=== PATIENT | female | born 1995 | race Caucasian/White ===

== ENCOUNTER → 2020-03-23 12:25 | Observation (INO) ==
[2020-03-23 11:59] LABS: Bacteria,Urine Many per hpf (None-Few); Bilirubin,Urine Negative (Negative); Blood,Urine Negative (Negative); Clarity,Urine Ex.Turbid (Clear); Color,Urine Yellow (Yellow); Glucose,Urine (UA) Normal (Normal); Hyaline Casts,Urine Few per lpf (None Seen); Ketones,Urine Negative (Negative); Leukocyte Esterase,Urine Moderate (Negative); Mucus,Urine Many per lpf (None-Few); Nitrite,Urine Negative (Negative); PH,Urine 6.5 pH Units (5.0-8.0); Protein,Urine 100 mg/dL (Neg-Trace); Specific Gravity,Urine 1.024 (1.010-1.025); Squamous Epithelial Cell,Urine Many per hpf (None-Few)
== END | disposition home or self-care (01) ==
LOC: 1NENULAB
PROVIDERS: ADMIT Obstetrics & Gynecology; ATTEND Obstetrics & Gynecology

== ENCOUNTER → 2020-05-08 14:51 | Observation (INO) ==
[2020-05-08 12:31] LABS: Bacteria,Urine Moderate per hpf (None-Few); Bilirubin,Urine Negative (Negative); Blood,Urine Negative (Negative); Clarity,Urine Turbid (Clear); Color,Urine Yellow (Yellow); Glucose,Urine (UA) Normal (Normal); Hyaline Casts,Urine Few per lpf (None Seen); Ketones,Urine Trace mg/dL (Negative); Leukocyte Esterase,Urine Small (Negative); Mucus,Urine Many per lpf (None-Few); Nitrite,Urine Negative (Negative); Protein,Urine 50 mg/dL (Neg-Trace); Specific Gravity,Urine 1.022 (1.010-1.025); Squamous Epithelial Cell,Urine Many per hpf (None-Few); Transitional Epi Cells,Urine Few per hpf (None-Few)
== END | disposition home or self-care (01) ==
LOC: 1NENULAB
PROVIDERS: ADMIT Obstetrics & Gynecology; ATTEND Obstetrics & Gynecology

== ENCOUNTER 2020-05-20 18:09 | Observation (INO) ==
[2020-05-20 19:08] LABS: Bacteria,Urine Many per hpf (None-Few); Bilirubin,Urine Negative (Negative); Blood,Urine Negative (Negative); Calcium Oxalate Crystals,Urine Present; Clarity,Urine Turbid (Clear); Color,Urine Light-Yellow (Yellow); Glucose,Urine (UA) Normal (Normal); Ketones,Urine Negative (Negative); Leukocyte Esterase,Urine Trace (Negative); Mucus,Urine Few per lpf (None-Few); Nitrite,Urine Negative (Negative); Protein,Urine Trace mg/dL (Neg-Trace); Specific Gravity,Urine 1.013 (1.010-1.025); Squamous Epithelial Cell,Urine Many per hpf (None-Few); Urobilinogen,Urine Normal (Normal); WBC,Urine 0-3 per hpf (0-3)
== END 2020-05-20 19:23 | disposition home or self-care (01) ==
LOC: 1NENULAB
PROVIDERS: ADMIT Obstetrics & Gynecology; ATTEND Obstetrics & Gynecology

== ENCOUNTER 2020-06-01 19:41 | Inpatient (IN) ==
[~2020-06-01 19:41] MED LIST: Methylergonovine 0.2 MG/ML AMPUL IM ONE
[2020-06-01] MEDS ORDERED: Ondansetron 4 MG/2 ML VIAL IVP PRN (19:48)
[2020-06-01] MEDS ORDERED: Naloxone 0.4 MG/ML INJ IVP PRN (19:48)
[2020-06-01] MEDS ORDERED: Lidocaine 1% 20 ML MDV INFILT PRN (19:48)
[2020-06-01] MEDS ORDERED: Metoclopramide 10 MG/2 ML VIAL IVP PRN (19:48)
[2020-06-01] MEDS ORDERED: Famotidine 20 MG/2 ML VIAL IVP PRN (19:48)
[2020-06-01] MEDS ORDERED: EPHEDrine 50 MG/ML VIAL IVP PRN (19:49)
[2020-06-01] MEDS ORDERED: Epidural Premix (fent/bupiv) 110 ML EP SCH (20:00)
[2020-06-01] MEDS ORDERED: Oxytocin 20 units/ LR 1000 mL 20 UNIT/1,000 ML BAG IVC SCH (20:00)
[2020-06-01] MEDS ORDERED: Ringers Solution, Lactated 1,000 ML IVC SCH (20:00)
[2020-06-01 20:32] LABS: Basophils # 0.1 K/mcL (0.0-0.2); Basophils % 0.3 %; Eosinophils # 0.1 K/mcL (0.0-0.6); Eosinophils % 0.3 %; Hematocrit 36.2 % (35.3-44.9); Hemoglobin 11.7 g/dL (11.5-15.4); Immature Granulocytes % 0.4 % (0-4); Lymphocytes # 2.1 K/mcL (0.6-4.6); Lymphocytes % 12.8 %; Mean Corpuscular HGB Conc 32.3 g/dL (31.6-35.5); Mean Corpuscular Hemoglobin 27.7 pg (28.0-33.3); Mean Corpuscular Volume 85.8 fL (83.0-100.0); Mean Platelet Volume 10.7 fL (9.4-12.4); Neutrophils # 13.1 K/mcL (1.6-8.9); Platelet Count 241 K/mcL (140-400); Red Blood Count 4.22 M/mcL (3.82-4.97); Segmented Neutrophils % 80.2 %; White Blood Count 16.3 K/mcL (4.3-11.1)
[2020-06-01 20:57] LABS: Amphetamine Screen,Urine Negative ng/mL (Cutoff=1000); Barbiturate Screen,Urine Negative ng/mL (Cutoff=200); Benzodiazepines Screen,Urine Negative ng/mL (Cutoff=200); Cannabinoid Screen,Urine Negative ng/mL (Cutoff = 50); Cocaine Screen,Urine Negative ng/mL (Cutoff= 300); Opiate Screen,Urine Negative ng/mL (Cutoff=300); Phencyclidine Screen,Urine Negative ng/mL (Cutoff=25)
[2020-06-01 22:12] LABS: Adenovirus Not Detected (Not Detect); Bordetella Pertussis Not Detected (Not Detect); Chlamydophila pneumoniae Not Detected (Not Detect); Coronavirus 229E Not Detected (Not Detect); Coronavirus HKU1 Not Detected (Not Detect); Coronavirus NL63 Not Detected (Not Detect); Coronavirus OC43 Not Detected (Not Detect); Human Metapneumovirus Not Detected (Not Detect); Human Rhinovirus/Enterovirus Not Detected (Not Detect); Influenza A Subtype 2009 H1 Not Detected (Not Detect); Influenza B Not Detected (Not Detect); Mycoplasma pneumoniae Not Detected (Not Detect); Parainfluenza Virus 1 Not Detected (Not Detect); Parainfluenza Virus 2 Not Detected (Not Detect); Parainfluenza Virus 3 Not Detected (Not Detect); Parainfluenza Virus 4 Not Detected (Not Detect); Respiratory Syncytial Virus Not Detected (Not Detect); SARS-CoV-2 Not Detected (Not Detect)
[2020-06-02] MEDS ORDERED: Terbutaline 1 MG/ML VIAL SQ ONE (01:29)
[2020-06-02] MEDS ORDERED: *HR* Succinylcholine 200 MG/10 ML VIAL IVP ONE (01:38)
[2020-06-02] MEDS ORDERED: Acetaminophen IV 1,000 MG/100 ML BAG IVPB ONE (01:46)
[2020-06-02] MEDS ORDERED: *HR* Morphine Sulfate/PF 10 MG/10 ML AMPUL ONE (01:48)
[2020-06-02] MEDS ORDERED: *HR* FentaNYL (PF) 100 MCG/2 ML VIAL ONE (01:48)
[2020-06-02] MEDS ORDERED: *HR* Phenylephrine 10 MG/ML VIAL ONE (01:55)
[2020-06-02] MEDS ORDERED: Ibuprofen 400 MG TABLET PO PRN (02:00)
[2020-06-02] MEDS ORDERED: *HR* OxyCODONE/APAP 5/325 TABLET PO PRN (02:00)
[2020-06-02] MEDS ORDERED: Ondansetron 4 MG/2 ML VIAL IVP PRN ×2 (02:00→04:02)
[2020-06-02] MEDS ORDERED: *HR* HYDROmorphone (PF) 1 MG/ML SYRINGE IVP PRN (02:00)
[2020-06-02] MEDS ORDERED: Ondansetron 4 MG/2 ML VIAL ONE (02:11)
[2020-06-02] MEDS ORDERED: Acetaminophen 325 MG TABLET PO PRN (04:02)
[2020-06-02] MEDS ORDERED: 0.9 % Sodium Chloride 1,000 ML IVC SCH (04:02)
[2020-06-02] MEDS ORDERED: Simethicone 80 MG TAB.CHEW PO PRN (04:02)
[2020-06-02] MEDS ORDERED: Oxytocin 20 units/ LR 1000 mL 20 UNIT/1,000 ML BAG IVC SCH (04:02)
[2020-06-02] MEDS ORDERED: Sennosides 8.6 MG TABLET PO PRN (04:02)
[2020-06-02] MEDS ORDERED: Naloxone 0.4 MG/ML INJ IVP PRN (04:02)
[2020-06-02] MEDS ORDERED: Metoclopramide 10 MG/2 ML VIAL IVP PRN (04:02)
[2020-06-02] MEDS: metroNIDAZOLE 500 MG TABLET PO SCH ×3 (08:59→20:27)
[2020-06-02] MEDS: cephALEXin 500 MG CAPSULE PO SCH ×3 (09:00→20:27)
[2020-06-02] MEDS: Ibuprofen 600 MG TABLET PO PRN ×3 (09:01→20:28)
[2020-06-02] MEDS: Prenatal Vit/FA 1 EACH TABLET PO SCH (09:01)
[2020-06-03] MEDS: Ibuprofen 600 MG TABLET PO PRN ×3 (04:32→20:56)
[2020-06-03 05:15] LABS: Basophils % 0.2 %; Eosinophils % 0.3 %; Hematocrit 27.5 % (35.3-44.9); Hemoglobin 8.7 g/dL (11.5-15.4); Immature Granulocytes % 0.5 % (0-4); Lymphocytes # 2.9 K/mcL (0.6-4.6); Lymphocytes % 20.2 %; Mean Corpuscular HGB Conc 31.6 g/dL (31.6-35.5); Mean Corpuscular Hemoglobin 28.2 pg (28.0-33.3); Mean Corpuscular Volume 89.3 fL (83.0-100.0); Mean Platelet Volume 10.6 fL (9.4-12.4); Monocytes # 1.1 K/mcL (0.0-1.3); Monocytes % 7.7 %; Neutrophils # 10.4 K/mcL (1.6-8.9); Platelet Count 196 K/mcL (140-400); Red Blood Count 3.08 M/mcL (3.82-4.97); Red Cell Distribution Width 14.3 % (11.5-14.5); Segmented Neutrophils % 71.1 %; White Blood Count 14.6 K/mcL (4.3-11.1)
[2020-06-03] MEDS: Prenatal Vit/FA 1 EACH TABLET PO SCH (07:53)
[2020-06-03] MEDS: metroNIDAZOLE 500 MG TABLET PO SCH ×3 (07:53→20:56)
[2020-06-03] MEDS: cephALEXin 500 MG CAPSULE PO SCH ×3 (07:53→20:56)
[2020-06-03] MEDS: *HR* OxyCODONE Immed Rel 5 MG TABLET PO PRN (07:54)
[2020-06-04] MEDS: *HR* OxyCODONE Immed Rel 5 MG TABLET PO PRN (02:44)
[2020-06-04 03:47] LABS: Basophils % 0.2 %; Eosinophils # 0.1 K/mcL (0.0-0.6); Eosinophils % 0.8 %; Hematocrit 27.6 % (35.3-44.9); Hemoglobin 8.5 g/dL (11.5-15.4); Immature Granulocytes % 0.5 % (0-4); Lymphocytes # 2.4 K/mcL (0.6-4.6); Lymphocytes % 23.2 %; Mean Corpuscular HGB Conc 30.8 g/dL (31.6-35.5); Mean Corpuscular Hemoglobin 27.5 pg (28.0-33.3); Mean Corpuscular Volume 89.3 fL (83.0-100.0); Mean Platelet Volume 10.4 fL (9.4-12.4); Monocytes # 0.7 K/mcL (0.0-1.3); Neutrophils # 7.1 K/mcL (1.6-8.9); Platelet Count 197 K/mcL (140-400); Red Blood Count 3.09 M/mcL (3.82-4.97); Red Cell Distribution Width 14.4 % (11.5-14.5); Segmented Neutrophils % 68.3 %; White Blood Count 10.4 K/mcL (4.3-11.1)
[2020-06-04 08:08] VITALS: BP 103/64
[2020-06-04] MEDS: Prenatal Vit/FA 1 EACH TABLET PO SCH (08:49)
[2020-06-04] MEDS: Ibuprofen 600 MG TABLET PO PRN (08:52)
== END 2020-06-04 14:41 | disposition home or self-care (01) | DRG 540 ==
LOC: 1NENULAB 19:41 → 1NENUOBS 06-02 05:38
PROVIDERS: ADMIT Obstetrics & Gynecology; ATTEND Obstetrics & Gynecology